=== PATIENT | male | born 1935 | race Caucasian/White ===

== ENCOUNTER 2016-12-02 07:24 | Day surgery (SDC) | payer BC, MEDICARE ==
[~2016-12-02 07:24] MED LIST: Dexamethasone 4 MG/ML 5 ML MDV ONE; Ondansetron 4 MG/2 ML SDV ONE; Propofol 200 MG/20 ML SDV ONE; fentaNYL 100 MCG/2 ML SDV ONE
[2016-12-02] MEDS ORDERED: Bupivacaine 25%/EPINEPHrine/PF 30 ML ONE (07:33)
[2016-12-02] MEDS ORDERED: Dexamethasone/Tobramycin 0.1-0.3% Ophth Oint 3.5 GM Tube ONE (07:50)
[2016-12-02] MEDS ORDERED: Octyl 2-Cyanoacrylate 1 Tube ONE (07:50)
[2016-12-02] MEDS ORDERED: Lactated Ringers 1,000 ML IV SCH (08:00)
[2016-12-02] MEDS ORDERED: Bupivacaine 0.25%/EPINEPHrine 1:200,000 10 ML SDV INJECT ONE (08:00)
[2016-12-02] MEDS ORDERED: Dexamethasone/Tobramycin 0.1-0.3% Ophth Oint 3.5 GM Tube EYEBOTH SCH (08:00)
[2016-12-02] MEDS ORDERED: ceFAZolin 2 GM in Premix Bag 1 BAG IV ONE (08:00)
[2016-12-02] MEDS ORDERED: traMADol 50 MG Tab PO PRN (08:00)
--- NOTE | 2016-12-02 08:23 | PCM.PREANE ---
Preanesthetic Assessment - Anesthesia/Transfusion/Family Hx Anesthesia History: Prior Anesthesia Without Reaction Family History of Anesthesia Reaction: No Transfusion History: No Prior Transfusion(s) - Review of Systems General: No Symptoms Pulmonary: No Symptoms Cardiovascular: No Symptoms Gastrointestinal: No Symptoms Neurological: No Symptoms Other: Reports: None - Physical Assessment NPO Status Date: 12/01/16 NPO Status Time: 21:00 O2 Sat by Pulse Oximetry: 100 Respiratory Rate: 16 Vital Signs: Last Vital Signs Temp 36.5 C 12/02/16 07:47 Pulse 52 L 12/02/16 07:47 Resp 16 12/02/16 07:47 BP 132/76 12/02/16 07:47 Pulse Ox 100 12/02/16 07:47 Height: 1.78 m Weight: 77.111 kg ASA Class: 2 Mental Status: Alert & Oriented x3 Airway Class: Mallampati = 2 Dentition: Reports: Normal Dentition, [place](s) ROM/Head Extension: Full Lungs: Clear to Auscultation, Normal Respiratory Effort Cardiovascular: Regular Rate, Regular Rhythm - Allergies Allergies/Adverse Reactions: Allergies Allergy/AdvReac Type Severity Reaction Status Date / Time No Known Allergies Allergy Verified 11/30/16 07:42 - Anesthesia Plan Pre-Op Medication Ordered: None - Acknowledgements Anesthesia Type Planned: MAC Pt an Appropriate Candidate for the Planned Anesthesia: Yes Alternatives and Risks of Anesthesia Discussed w Pt/Guardian: Yes Pt/Guardian Understands and Agrees with Anesthesia Plan: Yes PreAnesthesia Questionnaire HEENT History: Reports: Cataract Other HEENT History: wears glasses, has dental implants Cardiovascular History: Reports: CAD, High Cholesterol, Hypertension, ID Genitourinary History: Reports: BPH Other Musculoskeletal History: hx fx leg Endocrine/Metabolic History: Reports: Diabetes, Type II Dermatologic History: Reports: None - Past Surgical History Head Surgeries/Procedures: Reports: None Cardiovascular Surgical History: Reports: Coronary Artery Bypass, Coronary Artery Stent GI Surgical History: Reports: Hernia, Abdominal, Other (See Below) Other GI Surgeries/Procedures: hx of "esophageal rap" Musculoskeletal Surgical History: Reports: Shoulder Surgery Dermatological Surgical History: Reports: Plastic Surgical Reconstruction/Repair - SUBSTANCE USE Smoking Status *Q: Never Smoker Recreational Drug Use History: No - HOME MEDS Home Medications: Home Meds Calcium Carbonate/Vitamin D3 [Calcium 600 + Vit D Tablet] 1 tab PO BID 11/30/16 [History] Iron 65 mg PO DAILY 11/30/16 [History] Losartan Potassium 100 mg PO DAILY 11/30/16 [History] Metoprolol Succinate 25 mg PO BEDTIME 11/30/16 [History] Rosuvastatin Calcium 20 mg PO BEDTIME 11/30/16 [History] Tamsulosin Hcl [IJD: Tamsulosin HCl] 0.4 mg PO BEDTIME 11/30/16 [History] Vitamin B6-pyridOXINE 100 mg PO BEDTIME 11/30/16 [History] amLODIPine [Norvasc] 5 mg PO BEDTIME 11/30/16 [History] sitaGLIPtin Phos/Metformin HCl [Janumet 50-500 MG] 1 tab PO BID 11/30/16 [ History] - CURRENT (IN HOUSE) MEDS Current Meds: Current Medications Cefazolin Sodium/Dextrose 2 gm (/ Premix) 50 mls @ 100 mls/hr IV ONETIME ONE Stop: 12/02/16 08:29 Lactated Ringer's (Ringers, Lactated) 1,000 mls @ 125 mls/hr IV ASDIRECTED [facility] Last Admin: 12/02/16 07:58 Dose: 125 mls/hr Tobramycin/Dexamethasone (Tobradex Ophth Oint) 2 gm EYEBOTH Q4H FLOR Tramadol HCl (Ultram) 50 mg PO Q4H PRN PRN Reason: Pain Discontinued Medications Bupivacaine HCl/Epinephrine Bitart (Marcaine 0.25%/Epinephrine 1:200,000) 10 ml INJECT ONETIME ONE Stop: 12/02/16 08:01 Dexamethasone (Dexamethasone) Confirm Administered Dose 20 mg .ROUTE .STK-MED ONE Stop: 12/02/16 07:16 Fentanyl (Sublimaze) Confirm Administered Dose 100 mcg .ROUTE .STK-MED ONE Stop: 12/02/16 07:16 Bupivacaine HCl/Epinephrine Bitart (Sensorc Mpf 0.25%-Epi [id number]) Confirm Administered Dose 90 mls @ as directed .ROUTE .STK-MED ONE Stop: 12/02/16 07:34 Lidocaine HCl (Xylocaine-Mpf 1%) Confirm Administered Dose 5 ml .ROUTE .STK-MED ONE Stop: 12/02/16 07:16 Octyl Cyanoacrylate (Dermabond Advance) Confirm Administered Dose 1 applic .ROUTE .STK-MED ONE Stop: 12/02/16 07:51 Ondansetron HCl (Zofran) Confirm Administered Dose 4 mg .ROUTE .STK-MED ONE Stop: 12/02/16 07:16 Propofol (Diprivan 20 Ml) Confirm Administered Dose 200 mg .ROUTE .STK-MED ONE Stop: 12/02/16 07:16 Tobramycin/Dexamethasone (Tobradex Ophth Oint) Confirm Administered Dose 3.5 gm .ROUTE .STK-MED ONE Stop: 12/02/16 07:51
[2016-12-02] MEDS ORDERED: Propofol 200 MG/20 ML SDV ONE ×3 (09:05→09:51)
--- NOTE | 2016-12-02 10:49 | PCM.POSTAN ---
POST ANESTHESIA ASSESSMENT - MENTAL STATUS Mental Status: Alert, Oriented - RESPIRATORY Respiratory Status: Respiratory Rate WNL, Airway Patent, O2 Saturation Stable - CARDIOVASCULAR CV Status: Pulse Rate WNL, Blood Pressure Stable - GASTROINTESTINAL GI Status: No Symptoms - POST OP HYDRATION Hydration Status: Adequate & Stable
--- NOTE | 2016-12-02 10:49 | PCM48HPAN ---
Post Anesthesia Note - EVALUATION WITHIN 48HRS OF ANESTHETIC Vital Signs in Normal Range: Yes Patient Participated in Evaluation: Yes Respiratory Function Stable: Yes Airway Patent: Yes Cardiovascular Function Stable: Yes Hydration Status Stable: Yes Pain Control Satisfactory: Yes Nausea and Vomiting Control Satisfactory: Yes Mental Status Recovered: Yes
[2016-12-02] MEDS ORDERED: fentaNYL 100 MCG/2 ML SDV IVPUSH PRN (11:45)
[2016-12-02 12:12] VITALS: BP 150/66
[2016-12-02] MEDS ORDERED: ceFAZolin 1 GM Vial ONE (12:15)
--- NOTE | 2016-12-06 08:24 | PCM.OPNOTE ---
- General Post-Op/Procedure Note Date of Surgery/Procedure: 12/02/16 Operative Procedure(s): bilateral brow lift, bilateral upper rod blepharoplasty for dermatochalasis and bilateral lower eyelid tarsal strip for ectropion repair. 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 Post-Op Diagnosis: Same Anesthesia Technique: Local, MAC Primary Surgeon: Bing Lamb Telephonic Rn: Margie Godinez Complications: None Condition: Good Free Text/Narrative:: [id number]
--- NOTE | 2016-12-06 12:07 | OR ---
SURGEON: ESTEPHANIA SALAZAR MD DATE OF PROCEDURE: 12/02/2016 PREOPERATIVE DIAGNOSES: Bilateral upper lid dermatochalasis, brow ptosis, and lower eyelid bilateral ectropion senile. POSTOPERATIVE DIAGNOSES: Bilateral upper lid dermatochalasis, brow ptosis, and lower eyelid bilateral ectropion senile. PROCEDURES: 1. Bilateral brow lift. 2. Bilateral upper lid blepharoplasty for dermatochalasis. 3. Bilateral lower eyelid tarsal strip for ectropion repair. [employer]: Margie Godinez PA-C. ANESTHESIA: Local MAC. INDICATIONS: Mr. Hurst is an 81-year-old gentleman with severe visual obstruction due to brow ptosis and upper eyelid excess skin along with lower eyelid ectropion due to laxity. Risks and benefits of upper eyelid blepharoplasty and brow lift as well as lower eyelid tarsal strip for ectropion repair were discussed with him. He was in agreement to proceed. Risks were including, but not limited to, bleeding, infection, damage to underlying or overlying structures, possible need for future interventions and possible scarring. PROCEDURE IN DETAIL: After informed consent was obtained and placed on the chart, the patient was brought to the operating theater and laid in the supine position. After adequate local MAC anesthetic was obtained, the area was prepped and draped and a time-out was completed to confirm side and site. Attention was then paid first to the brows. Appropriate incision was marked at the superciliary area to the lateral upper brow. Direct excision was decided upon and the ellipse was marked. After adequate local anesthesia was infiltrated and then a #15 blade was used to dissect through the skin and subcutaneous tissue taking care to leave the deeper muscle layer intact. Once adequately excised, minimal undermining was completed inferiorly to allow elevation. The wound was then closed with deep 4-0 Monocryl stitches and a running 4-0 subcuticular for the skin. It was dressed with Steri-Strips. Attention was then paid to the upper eyelid. The markings were made appropriately for adequate excision and then local anesthesia was infiltrated into the area. Once adequate infiltration and anesthesia, the area was excised in standard fashion using a #15 blade through the skin. Muscle layer was left intact underneath and Bovie electrocautery was used to obtain meticulous hemostasis prior to closure. Once adequately hemostasis, the skin was closed with a deep 4-0 Monocryl stitch and running 6-0 Prolene for the skin. The suture ends were secured in place using Steri-Strips. Attention was then paid to the lower eyelid ectropion. A lateral canthotomy was made and the inferior tarsus was isolated for a length of 0.5 cm. Once this was isolated and all of the glandular and skin tissue had been removed from this tarsal area, the tarsus was then sutured to the lateral canthus area on the orbital rim. This was done using [id number] clear Prolene 4-0 suture. Once adequately secured, the skin was then approximated and closed using 5-0 chromic sutures in a single deep 5-0 Monocryl. Once this was closed appropriately, attention was then paid to dressing the wounds. The Steri-Strips were in place and TobraDex ointment was used on the eye incision. The patient tolerated this well and all counts and needles were correct at the end of the case. FOLLOWUP INSTRUCTIONS: The patient will see us in clinic in approximately 1 week, sooner if any problems, questions, or concerns. He was given a prescription for tramadol for pain control. ARCHANA / EUGENE /[id number]
== END 2016-12-02 12:05 | disposition home or self-care (01) ==
LOC: MW.SDS 07:24
PROVIDERS: ATTEND Plastic Surgery
PROC: 08SP0ZZ Reposition Left Upper Eyelid, Open Approach (ICD-10-PCS; principal; 2016-12-02)
PROC: 08SN0ZZ Reposition Right Upper Eyelid, Open Approach (ICD-10-PCS; 2016-12-02)
PROC: 08Q Eye, Repair (ICD-10-PCS; 2016-12-02)
PROC: 08QP0ZZ Repair Left Upper Eyelid, Open Approach (ICD-10-PCS; 2016-12-02)
DX: H02.834 Dermatochalasis of left upper eyelid (principal); H02.831 Dermatochalasis of right upper eyelid; E78.00 Pure hypercholesterolemia, unspecified; I10 Essential (primary) hypertension; Z79.899 Other long term (current) drug therapy
CPT/HCPCS: 67917; A9270; J0690; J1100; J2405; J3010; J7120; 00300; J2704

== ENCOUNTER 2017-08-30 10:06 | Emergency (ER) | payer BC ==
--- NOTE | 2017-08-30 10:38 | EDM.PDOC ---
ED HPI GENERAL MEDICAL PROBLEM - General Chief Complaint: Skin Complaint Stated Complaint: ABSCESS ON BOTTOM Time Seen by Provider: 08/30/17 10:13 Source of Information: Reports: Patient History Limitations: Reports: No Limitations - History of Present Illness INITIAL COMMENTS - FREE TEXT/NARRATIVE: HISTORY AND PHYSICAL: History of present illness: Patient is an 82-year-old male who presents to the emergency room today with complaints of an abscess to his perirectal area. He states over the last couple days he has noticed pain and discomfort along with a "hard lump" to his perirectal area. She did have a perirectal abscess in the 1970s and states the symptoms feel similar. He denies any fever, chills, chest pain or shortness of breath. He denies any abdominal pain, nausea, vomiting, diarrhea or constipation. Has not noted any blood in his stools but does have discomfort when straining to have a bowel movement. He denies any dysuria or changes in his urinary pattern. History of HTN, elevated cholesterol, heart disease, and DM II. Review of systems: As per history of present illness and below otherwise all systems reviewed and negative. Past medical history: As per history of present illness and as reviewed below otherwise noncontributory. Surgical history: As per history of present illness and as reviewed below otherwise noncontributory. Social history: No reported history of drug or alcohol abuse. Family history: As per history of present illness and as reviewed below otherwise noncontributory. Physical exam: General: Well-developed and well-nourished 82-year-old male. Alert and oriented. Nontoxic appearing and in no acute distress. HEENT: Atraumatic, normocephalic, pupils equal and reactive bilaterally, negative for conjunctival pallor or scleral icterus, mucous membranes moist, throat clear, neck supple, nontender, trachea midline. No drooling or trismus noted. No meningeal signs Lungs: Clear to auscultation, breath sounds equal bilaterally, chest nontender. Heart: S1S2, regular rate and rhythm without overt murmur Abdomen: Soft, nondistended, nontender. Negative for masses or hepatosplenomegaly. Negative for costovertebral tenderness. Pelvis: Stable nontender. Genitourinary: Deferred. Rectal: This was done with a electronic equipment set up operator at the bedside. The sphincter is intact with good tone. No external hemorrhoids noted. He does have an area approximately the size of a $0.50 piece clean the rectum and testicles which is firm to touch and erythematous. Mild tenderness with palpation. Non-fluctuant. The rectum and scrotum are intact without erythema, rashes or lesions. No tenderness to the testicles with palpation. Skin: See rectal exam. Otherwise skin is intact, warm, dry. No lesions or rashes noted. Extremities: Atraumatic, negative for cords or calf pain. Neurovascular unremarkable. Neuro: Awake, alert, oriented. Cranial nerves II through XII unremarkable. Cerebellum unremarkable. Motor and sensory unremarkable throughout. Exam nonfocal. Notes: The perirectal abscess is nonfluctuant, therefore I will not attempt to I&D it. I will order a CT abdomen and pelvis to make sure that this abscess is not tunneling. Patient is agreeable to plan of care. Unable to do CT with contrast due to the BUN/Creatinine being elevated. Will give IV fluids as he does appear mildly dehydrated. Waiting for CT results. CT shows no evidence of perirectal abscess or limitation. 4 x 2 cm soft tissue mass adhered to the left wall of the urinary bladder is just for neoplasm. Also noted cholelithiasis, diverticulosis, small right ventral hernia containing fat. 1348: Dr Gaines was consulted on this case, he has reviewed the CT scan himself. He states that the soft tissue was is unrelated to the abscess that I am able to view upon physical examination. Requesting for patient to see him on 09/04/2017 at 3:30 PM for further care/management. 1400: Patient reports that he can feel drainage coming from the abscess site. A repeat rectal exam was done with a electronic equipment set up operator at the bedside. I was able to manually express a small amount of purulent drainage from the area. Remains firm to touch, non-fluctuant. A wound culture was obtained and sent to lab. Dr. CRUZ, general surgeon adult education teacher, was contacted and notified of this patient. 1420: Dr. Cruz is aware of this patient and his past medical history and current presentation. He is requesting that we give 400 mg of Cipro IV now and to have him follow up as an outpatient in his clinic tomorrow for an I&D. This information was shared with the patient and family members and they are agreeable to plan of care. I did offer additional pain medication for home use, he states he has oxycodone for a shoulder injury that he has been using. He declines any further need of medication. We'll discharge patient to home with that information. Diagnostics: CBC, CMP, CT abdomen and pelvis Therapeutics: IV fluids, Cipro Impression: Soft tissue mass Chioma-rectal abscess. Plan: 1. Tylenol and/or Ibuprofen as needed for pain management. 2. Appointment with Dr. Cruz (general surgeron) tomorrow, 08/31/2017, at 10:15am to possibily drain the abscess area. Located in [address] [place] [address]. 3. App[address] with Dr. Gaines (urologist) on 09/04/2017, at 3:30pm for further evaluation of soft tissue mass on your bladder. 4. Follow up with your primary care provider within the next week, and the specialist as we discussed. Return to the ED as needed and as discussed. Definitive disposition and diagnosis as appropriate pending reevaluation and review of above. Duration: Day(s): Location: Reports: Pelvis - Related Data Allergies Allergy/AdvReac Type Severity Reaction Status Date / Time No Known Allergies Allergy Verified 08/30/17 10:15 Home Meds: Home Meds Calcium Carbonate/Vitamin D3 [Calcium 600 + Vit D Tablet] 1 tab PO BID 11/30/16 [History] Iron 65 mg PO DAILY 11/30/16 [History] Losartan Potassium 50 mg PO DAILY 11/30/16 [History] Metoprolol Succinate 25 mg PO BEDTIME 11/30/16 [History] Tamsulosin Hcl [IJD: Tamsulosin HCl] 0.4 mg PO BEDTIME 11/30/16 [History] Vitamin B6-pyridOXINE 100 mg PO BEDTIME 11/30/16 [History] amLODIPine [Norvasc] 5 mg PO BEDTIME 11/30/16 [History] Insulin Degludec [Tresiba Flextouch U-100] 10 unit SQ DAILY 08/30/17 [History] amLODIPine Besylate [Amlodipine Besylate] 10 mg PO BEDTIME 08/30/17 [History] Past Medical History HEENT History: Reports: Cataract Other HEENT History: wears glasses, has dental implants Cardiovascular History: Reports: CAD, High Cholesterol, Hypertension, DC Respiratory History: Reports: None Gastrointestinal History: Reports: None Genitourinary History: Reports: BPH Musculoskeletal History: Reports: Other (See Below) Other Musculoskeletal History: hx fx leg Neurological History: Reports: None Psychiatric History: Reports: None Endocrine/Metabolic History: Reports: Diabetes, Type II Hematologic History: Reports: None Immunologic History: Reports: None Oncologic (Cancer) History: Reports: None Dermatologic History: Reports: None - Infectious Disease History Infectious Disease History: Reports: Chicken Pox, Measles, Mumps - Past Surgical History Head Surgeries/Procedures: Reports: None HEENT Surgical History: Reports: None Cardiovascular Surgical History: Reports: Coronary Artery Bypass, Coronary Artery Stent Respiratory Surgical History: Reports: None GI Surgical History: Reports: Hernia, Abdominal, Other (See Below) Other GI Surgeries/Procedures: hx of "esophageal rap" Male Surgical History: Reports: None Endocrine Surgical History: Reports: None Neurological Surgical History: Reports: None Musculoskeletal Surgical History: Reports: Shoulder Surgery Oncologic Surgical History: Reports: None Dermatological Surgical History: Reports: Plastic Surgical Reconstruction/Repair Social & Family History - Family History Family Medical History: Noncontributory - Tobacco Use Smoking Status *Q: Never Smoker Second Hand Smoke Exposure: No - Caffeine Use Caffeine Use: Reports: None - Recreational Drug Use Recreational Drug Use: No ED ROS GENERAL - Review of Systems Review Of Systems: ROS reveals no pertinent complaints other than HPI. ED EXAM, SKIN/RASH Exam: See Below (See dictation) Course - Vital Signs Last Recorded V/S: Last Vital Signs Temp 96.7 F 08/30/17 10:16 Pulse 71 08/30/17 12:56 Resp 18 08/30/17 12:56 BP 143/76 H 08/30/17 12:56 Pulse Ox 94 L 08/30/17 12:56 - Orders/Labs/Meds Orders: Active Orders 24 hr Category Date Time Status CULTURE WOUND [RM] Stat Lab 08/30/17 14:05 Received UA W/MICROSCOPIC [URIN] Stat Lab 08/30/17 14:15 Ordered Labs: Laboratory Tests 08/30/17 08/30/17 08/30/17 Range/Units 10:50 10:50 10:50 WBC 8.88 (4.0-11.0) K/uL RBC 3.46 L (4.50-5.90) M/uL Hgb 11.1 L (13.0-17.0) g/dL Hct 33.0 L (38.0-50.0) % MCV 95.4 (80.0-98.0) fL MCH 32.1 H (27.0-32.0) pg MCHC 33.6 (31.0-37.0) g/dL RDW Std Deviation 44.7 (28.0-62.0) fl RDW Coeff of Blaise 13 (11.0-15.0) % Plt Count 191 (150-400) K/uL MPV 9.50 (7.40-12.00) fL Neut % (Auto) 73.5 (48.0-80.0) % Lymph % (Auto) 13.7 L (16.0-40.0) % [place] % (Auto) 9.2 (0.0-15.0) % Eos % (Auto) 3.4 (0.0-7.0) % Baso % (Auto) 0.2 (0.0-1.5) % Neut # (Auto) 6.5 H (1.4-5.7) K/uL Lymph # (Auto) 1.2 (0.6-2.4) K/uL [place] # (Auto) 0.8 (0.0-0.8) K/uL Eos # (Auto) 0.3 (0.0-0.7) K/uL Baso # (Auto) 0.0 (0.0-0.1) K/uL Nucleated RBC % 0.0 /100WBC Nucleated RBCs # 0 K/uL Sodium 133 L (136-148) mmol/L Potassium 4.3 (3.5-5.1) mmol/L Chloride 100 (98-107) mmol/L Carbon Dioxide 22.2 (21.0-32.0) mmol/L BUN 29 H (7.0-18.0) mg/dL Creatinine 2.0 H (0.8-1.3) mg/dL Est Cr Clr Drug Dosing 30.85 mL/min Estimated GFR (MDRD) 32.2 ml/min Glucose 264 H (74-106) mg/dL Calcium 8.9 (8.5-10.1) mg/dL Total Bilirubin 0.7 (0.2-1.0) mg/dL AST 17 (15-37) IU/L ALT 21 (14-63) IU/L Alkaline Phosphatase 57 (46-116) U/L Total Protein 6.6 (6.4-8.2) g/dL Albumin 3.3 L (3.4-5.0) g/dL Globulin 3.3 (2.0-3.5) g/dL Albumin/Globulin Ratio 1.0 L (1.3-2.8) PSA Screen 1.35 (0.05-4.00) ng/mL Urine Color Urine Appearance Urine pH (5.0-8.0) Ur Specific Booker (1.001-1.035) Urine Protein (NEGATIVE) mg/dL Urine Glucose (UA) (NEGATIVE) mg/dL Urine Ketones (NEGATIVE) mg/dL Urine Occult Blood (NEGATIVE) Urine Nitrite (NEGATIVE) Urine Bilirubin (NEGATIVE) Urine Urobilinogen (<2.0) EU/dL Ur Leukocyte Esterase (NEGATIVE) Urine RBC (0-2/HPF) Urine WBC (0-5/HPF) Ur Epithelial Cells (NONE-FEW) Amorphous Sediment (NEGATIVE) Urine Bacteria (NEGATIVE) 08/30/17 Range/Units 14:15 WBC (4.0-11.0) K/uL RBC (4.50-5.90) M/uL Hgb (13.0-17.0) g/dL Hct (38.0-50.0) % MCV (80.0-98.0) fL MCH (27.0-32.0) pg MCHC (31.0-37.0) g/dL RDW Std Deviation (28.0-62.0) fl RDW Coeff of Blaise (11.0-15.0) % Plt Count (150-400) K/uL MPV (7.40-12.00) fL Neut % (Auto) (48.0-80.0) % Lymph % (Auto) (16.0-40.0) % [place] % (Auto) (0.0-15.0) % Eos % (Auto) (0.0-7.0) % Baso % (Auto) (0.0-1.5) % Neut # (Auto) (1.4-5.7) K/uL Lymph # (Auto) (0.6-2.4) K/uL [place] # (Auto) (0.0-0.8) K/uL Eos # (Auto) (0.0-0.7) K/uL Baso # (Auto) (0.0-0.1) K/uL Nucleated RBC % /100WBC Nucleated RBCs # K/uL Sodium (136-148) mmol/L Potassium (3.5-5.1) mmol/L Chloride (98-107) mmol/L Carbon Dioxide (21.0-32.0) mmol/L BUN (7.0-18.0) mg/dL Creatinine (0.8-1.3) mg/dL Est Cr Clr Drug Dosing mL/min Estimated GFR (MDRD) ml/min Glucose (74-106) mg/dL Calcium (8.5-10.1) mg/dL Total Bilirubin (0.2-1.0) mg/dL AST (15-37) IU/L ALT (14-63) IU/L Alkaline Phosphatase (46-116) U/L Total Protein (6.4-8.2) g/dL Albumin (3.4-5.0) g/dL Globulin (2.0-3.5) g/dL Albumin/Globulin Ratio (1.3-2.8) PSA Screen (0.05-4.00) ng/mL Urine Color YELLOW Urine Appearance CLEAR Urine pH 6.0 (5.0-8.0) Ur Specific Booker 1.010 (1.001-1.035) Urine Protein 30 (NEGATIVE) mg/dL Urine Glucose (UA) NEGATIVE (NEGATIVE) mg/dL Urine Ketones NEGATIVE (NEGATIVE) mg/dL Urine Occult Blood TRACE-LYSED (NEGATIVE) Urine Nitrite NEGATIVE (NEGATIVE) Urine Bilirubin NEGATIVE (NEGATIVE) Urine Urobilinogen 0.2 (<2.0) EU/dL Ur Leukocyte Esterase NEGATIVE (NEGATIVE) Urine RBC 2-4 (0-2/HPF) Urine WBC 0-2 (0-5/HPF) Ur Epithelial Cells RARE (NONE-FEW) Amorphous Sediment RARE (NEGATIVE) Urine Bacteria RARE (NEGATIVE) Meds: Medications Discontinued Medications Generic Name Dose Route Start Last Admin Trade Name Freq PRN Reason Stop Dose Admin Sodium Chloride 1,000 mls @ 500 mls/hr 08/30/17 13:12 08/30/17 13:16 Normal Saline IV 08/30/17 15:11 500 mls/hr STAT ONE Administration Ciprofloxacin/Dextrose 400 mg/ 200 mls @ 200 mls/hr 08/30/17 14:19 08/30/17 14:27 Premix IV 08/30/17 15:18 200 mls/hr NOW STA Administration Lidocaine HCl 20 ml 08/30/17 14:09 08/30/17 14:30 Xylocaine 1% INJECT 08/30/17 14:10 Not Given ONETIME ONE Lidocaine HCl Confirm 08/30/17 14:12 08/30/17 14:30 Xylocaine 1% Administered 08/30/17 14:13 Not Given Dose 50 ml .ROUTE .STK-MED ONE Departure - Departure Time of Disposition: 15:28 Disposition: Home, Self-Care 01 Clinical Impression: Perirectal abscess, Soft tissue mass - Discharge Information Instructions: Skin Abscess, [id number] Referrals: Denys Cruz MD [Physician] - 1 Day (Please follow up with Dr. Cruz August 31 at 1015am. ) Forms: ED Department Discharge Additional Instructions: The following information is given to patients seen in the emergency department who are being discharged to home. This information is to outline your options for follow-up care. We provide all patients seen in our emergency department with a follow-up referral. The need for follow-up, as well as the timing and circumstances, are variable depending upon the specifics of your emergency department visit. If you don't have a primary care physician on staff, we will provide you with a referral. We always advise you to contact your personal physician following an emergency department visit to inform them of the circumstance of the visit and for follow-up with them and/or the need for any referrals to a consulting specialist. The emergency department will also refer you to a specialist when appropriate. This referral assures that you have the opportunity for follow-up care with a specialist. All of these measure are taken in an effort to provide you with optimal care, which includes your follow-up. Under all circumstances we always encourage you to contact your private physician who remains a resource for coordinating your care. When calling for follow-up care, please make the office aware that this follow-up is from your recent emergency room visit. If for any reason you are refused follow-up, please contact the Emergency Department at and asked to speak to the emergency department charge nurse. [facility] - General Surgery Professional Building [address] [place] [address], [address] [place] [address] [facility] - Urology [address] [place] [address] 1. Tylenol and/or Ibuprofen as needed for pain management. 2. Appointment with Dr. Cruz (general surgeron) tomorrow, 08/31/2017, at 10:15am to possibily drain the abscess area. Located in [address] [place] [address]. 3. Appointment with Dr. Gaines (urologist) on 09/04/2017, at 3:30pm for further evaluation of soft tissue mass on your bladder. 4. Follow up with your primary care provider within the next week, and the specialist as we discussed. Return to the ED as needed and as discussed. - My Orders Last 24 Hours: My Active Orders 08/30/17 14:05 CULTURE WOUND [RM] Stat 08/30/17 14:15 UA W/MICROSCOPIC [URIN] Stat - Assessment/Plan Last 24 Hours: My Active Orders 08/30/17 14:05 CULTURE WOUND [RM] Stat 08/30/17 14:15 UA W/MICROSCOPIC [URIN] Stat
[2017-08-30] MEDS ORDERED: Sodium Chloride 0.9% 1,000 ML IV ONE (13:12)
[2017-08-30] MEDS ORDERED: Lidocaine 1% 20 ML MDV INJECT ONE (14:09)
[2017-08-30] MEDS ORDERED: Lidocaine 1% 50 ML MDV ONE (14:12)
--- NOTE | 2017-08-30 14:17 | CT ---
EXAM DATE: 08/30/17 PATIENT'S AGE: 82 Patient: JAEL TRAN Facility: [place], [place] Site . Site : [id number] Study: CT Abdomen/Pelvis [id number] 12:49:35 PM Ordering Physician: Doctor Nicholas Final Report: INDICATION: Perirectal abscess. TECHNIQUE: CT abdomen and pelvis without contrast. COMPARISON: None. FINDINGS: Lower chest: Unremarkable. Liver: Normal in size and attenuation. No masses. Gallbladder and bile ducts: Multiple gallbladder stones are present. Pancreas: Unremarkable. No mass or inflammation. Spleen: Normal in size. No masses. Adrenal glands: Normal in size. No nodules. Kidneys: Normal in size. No masses, stones, or hydronephrosis. GI tract: No sign of perirectal abscess or significant inflammation. Diverticulosis is present. The remainder of the GI tract is unremarkable. Normal appendix. Vasculature: Aortic atherosclerosis without aneurysm. Lymph nodes: No lymphadenopathy. Abdominal wall/Omentum/Peritoneum: Small fat containing right para midline ventral hernia is present on the axial series image 54. no free air or fluid collections. No sign of soft tissue mass or infiltration. Pelvis: There is an ill-defined 4 x 2 cm soft tissue lesion adherent to the left wall of the urinary bladder as demonstrated on the axial series image 110. Mild prostate gland hypertrophy. Bones: Unremarkable for age. IMPRESSION: 1. No sign of perirectal abscess or inflammation. 2. 4 x 2 cm soft tissue mass adherent to the left wall of the urinary bladder is suspicious for a neoplasm. Urology consultation is recommended for management of this finding. 3. Cholelithiasis. 4. Diverticulosis. 5. Small right ventral fat containing hernia. Please note that all CT scans at this facility use dose modulation, iterative reconstruction, and/or weight-based dosing when appropriate to reduce radiation dose to as low as reasonably achievable. Dictated by Zev Sellers MD @ Aug 30 2017 1:27PM (Electronic Signature) Report Signed by Proxy. [facility] CENTERGabby
[2017-08-30] MEDS ORDERED: Ciprofloxacin in D5W 400 MG in Premix Bag 1 BAG IV STA ×2 (14:19)
[2017-08-30 17:20] VITALS: BP 140/93
== END 2017-08-30 15:34 | disposition home or self-care (01) ==
LOC: MW.ED 10:06
DX: K61.1 Rectal abscess (principal); E11.9 Type 2 diabetes mellitus without complications; I10 Essential (primary) hypertension; I25.2 Old myocardial infarction; Z79.4 Long term (current) use of insulin
CPT/HCPCS: 36415; 74176; 80053; 81001; 85025; 87070; 96361; 96365; 99284; G0103; J0744; J7040; 99283

== ENCOUNTER 2017-09-07 07:52 | Day surgery (SDC) | payer BC ==
[~2017-09-07 07:52] MED LIST changes: -Dexamethasone 4 MG/ML 5 ML MDV ONE; +Lactated Ringers 1,000 ML IV SCH; -Ondansetron 4 MG/2 ML SDV ONE; -Propofol 200 MG/20 ML SDV ONE; +Sodium Chloride 0.9% 10 ML Syringe FLUSH PRN; +Sodium Chloride 0.9% 2.5 ML Syringe FLUSH PRN; +ceFAZolin 1 GM in Premix Bag 1 BAG IV ONE; -fentaNYL 100 MCG/2 ML SDV ONE
[2017-09-07] MEDS ORDERED: Ketorolac 30 MG/ML SDV ONE (08:32)
[2017-09-07] MEDS ORDERED: Lidocaine 2% 5 ML SDV ONE (08:32)
[2017-09-07] MEDS ORDERED: Ondansetron 4 MG/2 ML SDV ONE (08:32)
[2017-09-07] MEDS ORDERED: Glycopyrrolate 0.2 MG/ML SDV ONE (08:32)
[2017-09-07] MEDS ORDERED: fentaNYL 100 MCG/2 ML SDV ONE (08:33)
[2017-09-07] MEDS ORDERED: Propofol 200 MG/20 ML SDV ONE (08:33)
--- NOTE | 2017-09-07 09:00 | PCM.PREANE ---
Preanesthetic Assessment - Anesthesia/Transfusion/Family Hx Anesthesia History: Prior Anesthesia Without Reaction Family History of Anesthesia Reaction: No Transfusion History: No Prior Transfusion(s) Intubation History: Unknown - Review of Systems General: No Symptoms Pulmonary: No Symptoms Cardiovascular: No Symptoms Gastrointestinal: No Symptoms Neurological: No Symptoms Other: Reports: None - Physical Assessment O2 Sat by Pulse Oximetry: 96 Respiratory Rate: 16 Vital Signs: Last Vital Signs Temp 36.3 C 09/07/17 08:20 Pulse Resp 16 09/07/17 08:20 BP 119/72 09/07/17 08:20 Pulse Ox 96 09/07/17 08:20 Height: 1.78 m Weight: 86.183 kg ASA Class: 3 Mental Status: Alert & Oriented x3 Airway Class: Mallampati = 2 Dentition: Reports: Normal Dentition (upper retainer), Bridge (one tooth upper front - fixed bridge) Thyro-Mental Finger Breadths: 2 Mouth Opening Finger Breadths: 3 ROM/Head Extension: Full Lungs: Clear to Auscultation, Normal Respiratory Effort Cardiovascular: Regular Rate, Regular Rhythm - Allergies Allergies/Adverse Reactions: Allergies Allergy/AdvReac Type Severity Reaction Status Date / Time No Known Allergies Allergy Verified 09/05/17 11:09 - Blood Blood Available: No - Anesthesia Plan Pre-Op Medication Ordered: None - Acknowledgements Anesthesia Type Planned: General Anesthesia Pt an Appropriate Candidate for the Planned Anesthesia: Yes Alternatives and Risks of Anesthesia Discussed w Pt/Guardian: Yes Pt/Guardian Understands and Agrees with Anesthesia Plan: Yes PreAnesthesia Questionnaire HEENT History: Reports: Cataract Other HEENT History: wears reading glasses, has dental implants Cardiovascular History: Reports: CAD, High Cholesterol, Hypertension, MD (small one in ) Respiratory History: Reports: None Gastrointestinal History: Reports: None, GERD, Hiatal Hernia Genitourinary History: Reports: BPH, Other (See Below) (bladder mass on CT scan) Musculoskeletal History: Reports: Other (See Below) Other Musculoskeletal History: hx fx leg, recent dislocated right shoulder Neurological History: Reports: None Psychiatric History: Reports: None Endocrine/Metabolic History: Reports: Diabetes, Type II Hematologic History: Reports: None Immunologic History: Reports: None Oncologic (Cancer) History: Reports: None Dermatologic History: Reports: None - Infectious Disease History Infectious Disease History: Reports: Chicken Pox, Measles, Mumps - Past Surgical History Head Surgeries/Procedures: Reports: None HEENT Surgical History: Reports: Cataract Surgery, Other (See Below) Other HEENT Surgeries/Procedures: recent eyelid surgery Cardiovascular Surgical History: Reports: Coronary Artery Bypass, Coronary Artery Stent Other Cardiovascular Surgeries/Procedures: quadrupal bypass in 2001- denies chest pain and SOB Respiratory Surgical History: Reports: None GI Surgical History: Reports: Hernia, Abdominal, Other (See Below) Other GI Surgeries/Procedures: hx of "esophageal wrap" to repair hiatal hernia, hx of perirectal abscess Male Surgical History: Reports: None Endocrine Surgical History: Reports: None Neurological Surgical History: Reports: None, Discectomy, Lumbar Spine Musculoskeletal Surgical History: Reports: Shoulder Surgery Other Musculoskeletal Surgeries/Procedures:: has pins in right shoulder Oncologic Surgical History: Reports: None Dermatological Surgical History: Reports: Plastic Surgical Reconstruction/Repair - SUBSTANCE USE Smoking Status *Q: Never Smoker Recreational Drug Use History: No - HOME MEDS Home Medications: Home Meds Calcium Carbonate/Vitamin D3 [Calcium 600 + Vit D Tablet] 1 tab PO BID 11/30/16 [History] Iron 65 mg PO DAILY 11/30/16 [History] Losartan Potassium 50 mg PO QAM 11/30/16 [History] Metoprolol Succinate 25 mg PO BEDTIME 11/30/16 [History] Tamsulosin Hcl [IJD: Tamsulosin HCl] 0.4 mg PO BEDTIME 11/30/16 [History] Vitamin B6-pyridOXINE 100 mg PO BEDTIME 11/30/16 [History] amLODIPine [Norvasc] 5 mg PO QAM 11/30/16 [History] Insulin Degludec [Tresiba Flextouch U-100] 10 unit SQ DAILY 08/30/17 [History] amLODIPine Besylate [Amlodipine Besylate] 10 mg PO BEDTIME 08/30/17 [History] Clindamycin HCl 300 mg PO BID 09/05/17 [History] Rosuvastatin Calcium 20 mg PO DAILY 09/05/17 [History] - CURRENT (IN HOUSE) MEDS Current Meds: Current Medications Lactated Ringer's (Ringers, Lactated) 1,000 mls @ 100 mls/hr IV ASDIRECTED FLOR Sodium Chloride (Saline Flush) 10 ml FLUSH ASDIRECTED PRN PRN Reason: Keep Vein Open Sodium Chloride (Saline Flush) 2.5 ml FLUSH ASDIRECTED PRN PRN Reason: Keep Vein Open Discontinued Medications Fentanyl (Sublimaze) Confirm Administered Dose 100 mcg .ROUTE .STK-MED ONE Stop: 09/07/17 08:34 Glycopyrrolate (Robinul) Confirm Administered Dose 0.2 mg .ROUTE .STK-MED ONE Stop: 09/07/17 08:33 Cefazolin Sodium/Dextrose 1 gm (/ Premix) 50 mls @ 100 mls/hr IV ONCALL ONE Stop: 09/07/17 00:30 Ketorolac Tromethamine (Toradol) Confirm Administered Dose 30 mg .ROUTE .STK- MED ONE Stop: 09/07/17 08:33 Lidocaine (Xylocaine-Mpf 2%) Confirm Administered Dose 5 ml .ROUTE .STK-MED ONE Stop: 09/07/17 08:33 Ondansetron HCl (Zofran) Confirm Administered Dose 4 mg .ROUTE .STK-MED ONE Stop: 09/07/17 08:33 Propofol (Diprivan 20 Ml) Confirm Administered Dose 200 mg .ROUTE .STK-MED ONE Stop: 09/07/17 08:34
[2017-09-07] MEDS ORDERED: Midazolam 1 MG/ML 2 ML SDV ONE (09:17)
[2017-09-07] MEDS ORDERED: ceFAZolin 1 GM Vial ONE (09:49)
[2017-09-07] MEDS ORDERED: Furosemide 40 MG/4 ML VIAL ONE (11:04)
--- NOTE | 2017-09-07 12:05 | OR ---
SURGEON: Marine Gaines M.D. DATE OF PROCEDURE: 09/07/2017 PREOPERATIVE DIAGNOSES: 1. 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 3. Perineal abscess. POSTOPERATIVE DIAGNOSES: 1. 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 3. Perineal abscess. OPERATION: TURBT and I and D for perineal abscess. DESCRIPTION OF PROCEDURE: The patient was given general anesthesia. He was in the dorsal lithotomy position. The resectoscope was introduced in the bladder. The tumor was resected in its entirety. The satellite tumors were removed and the base of the tumor was biopsied invasion. With that done, a catheter was placed in the bladder, connected to a leg bag. The perineum was painted and draped and an incision was made over the abscess. A small amount of pus was drained out. Cultures were taken and iodoform packing was used. The patient tolerated both procedures well and was moved to recovery room in good condition. MICHI / EUGENE /[id number]
--- NOTE | 2017-09-07 14:01 | PCM48HPAN ---
Post Anesthesia Note - EVALUATION WITHIN 48HRS OF ANESTHETIC Vital Signs in Normal Range: Yes Patient Participated in Evaluation: Yes Respiratory Function Stable: Yes Airway Patent: Yes Cardiovascular Function Stable: Yes Hydration Status Stable: Yes Pain Control Satisfactory: Yes Nausea and Vomiting Control Satisfactory: Yes Mental Status Recovered: Yes Resp Rate: 17 - COMMENTS/OBSERVATIONS Free Text/Narrative:: no anesthesia problems
[2017-09-07 15:09] VITALS: BP 120/56
== END 2017-09-07 14:30 | disposition home or self-care (01) ==
LOC: MW.SDS 07:52
PROVIDERS: ATTEND Urology
DX: C67.9 Malignant neoplasm of bladder, unspecified (principal); K65.1 Peritoneal abscess; K21.9 Gastro-esophageal reflux disease without esophagitis; I10 Essential (primary) hypertension; I25.2 Old myocardial infarction; E78.00 Pure hypercholesterolemia, unspecified; Z79.899 Other long term (current) drug therapy
CPT/HCPCS: 49020; 52235; 82962; 87070; 87075; 87186; 87205; J0690; J1885; J1940; J2250; J2405; J3010; J7120; 00912; 87077; 88305; 88307; J2704

== ENCOUNTER 2022-12-29 08:28 | Emergency (ER) | payer MEDICARE, BC ==
[2022-12-29] MEDS ORDERED: Sodium Chloride 0.9% 10 ML Syringe FLUSH PRN (08:56)
[2022-12-29] MEDS ORDERED: Sodium Chloride 0.9% 2.5 ML Syringe FLUSH PRN (08:56)
[2022-12-29 10:46] LABS: BASOPHILS ABSOLUTE AUTO 0.03 K/uL (0.00-0.20); BASOPHILS PERCENT AUTO 0.4 % (0.0-1.0); EOSINOPHILS ABSOLUTE AUTO 0.21 K/uL (0.00-0.45); EOSINOPHILS PERCENT AUTO 2.6 % (0.0-6.0); HEMATOCRIT 37.1 % (42.0-52.0); HEMOGLOBIN 12.8 g/dL (14.0-18.0); IMMATURE GRAN ABSOLUTE AUTO 0.02 K/uL (0.00-0.05); IMMATURE GRAN PERCENT AUTO 0.2 % (0.0-0.4); LYMPHOCYTES ABSOLUTE AUTO 1.44 K/uL (1.00-4.80); LYMPHOCYTES PERCENT AUTO 17.5 % (24.0-44.0); MEAN CORPUSCULAR HEMOGLOBIN 33.5 pg (28.0-32.0); MEAN CORPUSCULAR HGB CONC 34.5 g/dL (32.0-36.0); MEAN CORPUSCULAR VOLUME 97.1 fL (83.0-99.0); MEAN PLATELET VOLUME 9.7 fL (9.4-12.4); MONOCYTES ABSOLUTE AUTO 0.86 K/uL (0.00-0.80); MONOCYTES PERCENT AUTO 10.4 % (0.0-8.0); NEUTROPHILS ABSOLUTE AUTO 5.67 K/uL (1.80-7.70); NEUTROPHILS PERCENT AUTO 68.9 % (41.0-71.0); PLATELET COUNT,PLT 189 K/uL (150-400); RED BLOOD CELL COUNT 3.82 M/uL (4.52-5.90); WHITE BLOOD CELL COUNT,WBC 8.23 K/uL (3.9-11.3)
[2022-12-29 11:29] LABS: A/G RATIO 0.8 (0.9-1.6); ALBUMIN 3.1 g/dL (3.4-5.0); BILIRUBIN TOTAL 0.8 mg/dL (0.2-1.0); CARBON DIOXIDE,CO2 23.4 mmol/L (21.0-32.0); CREATININE 2.4 mg/dL (0.8-1.3); EST CRCL DRUG DOSING (CG) 22.81 mL/min; POTASSIUM,K 4.1 mmol/L (3.5-5.1); PROTEIN TOTAL,TP 6.8 g/dL (6.4-8.2)
[2022-12-29 11:35] LABS: LACTIC ACID 0.8 mmol/L (0.4-2.0)
[2022-12-29 11:38] LABS: CALCIUM 8.2 mg/dL (8.5-10.1)
[2022-12-29] MEDS ORDERED: Midazolam 1 MG/ML 2 ML SDV IVPUSH ONE (12:19)
[2022-12-29 14:25] VITALS: BP 120/85; PULSE 68
== END 2022-12-29 13:42 | disposition home or self-care (01) ==
LOC: MW.ED 08:28
DX: K56.41 Fecal impaction (principal); I25.10 Atherosclerotic heart disease of native coronary artery without angina pectoris; E78.00 Pure hypercholesterolemia, unspecified; I10 Essential (primary) hypertension; I25.2 Old myocardial infarction; E11.9 Type 2 diabetes mellitus without complications; Z95.5 Presence of coronary angioplasty implant and graft; Z79.4 Long term (current) use of insulin; Z79.899 Other long term (current) drug therapy
CPT/HCPCS: 36415; 74176; 80053; 83605; 83690; 85025; 96374; 99284; J2250